=== PATIENT | male | born 1950 | race Caucasian/White ===

== ENCOUNTER 2020-07-02 11:22 | Day surgery (SDC) | payer MEDICARE, MEDICAID ==
[~2020-07-02] VITALS: Ht 177.8 cm; Wt 108.2 kg
[~2020-07-02 11:22] MED LIST: ALD25T PO; ANTIBIOTICS IV; APIX5TAB3 PO; BUME2TAB7 PO; DOCU100C40 PO; MAGN64TA12 PO; NORCO10T PO; POTA10TA36 PO
[2020-07-02] MEDS ORDERED: normal saline 1000ml 1,000 ML IV SCH (12:00)
--- NOTE | 2020-07-02 13:09 | NUR ---
Pt did not consent to planned procedure-cx per pt request Addendum: 07/02/20 at 1310 by Lizette Salgado RN Amended: Links added.
== END 2020-07-02 12:15 | disposition home or self-care (01) ==
LOC: SSTAY O 11:22
PROVIDERS: ATTEND Radiology Diagnostic Radiology
DX: C81.90 Hodgkin lymphoma, unspecified, unspecified site (principal); Z53.29 Procedure and treatment not carried out because of patient's decision for other reasons